=== PATIENT | female | born 1975 | race Caucasian/White ===

== ENCOUNTER 2021-11-04 09:02 | Outpatient (CLI) | payer BC | END 2021-11-04 09:03 | disposition home or self-care (01) | LOC: BICMAMMO 09:02 | PROVIDERS: ATTEND Physician Assistant | DX: Z12.31 Encounter for screening mammogram for malignant neoplasm of breast (principal) | CPT/HCPCS: 77063; 77067 ==

== ENCOUNTER 2023-08-29 16:48 | Emergency (ER) | payer OTHER, SELFPAY | END 2023-08-29 17:30 | disposition home or self-care (01) | LOC: ERS 16:48 | DX: H66.91 Otitis media, unspecified, right ear (principal); H73.91 Unspecified disorder of tympanic membrane, right ear; E11.9 Type 2 diabetes mellitus without complications; Z79.4 Long term (current) use of insulin | CPT/HCPCS: 99282 ==

== ENCOUNTER 2024-06-12 17:40 | Emergency (ER) | payer BC, OTHER ==
[2024-06-12 19:26] LABS: #Basophils 0.08 10x3/uL (0.0-0.2); %Basophils 0.8 % (0.0-1.0); %Eosinophils 1.9 % (0.0-10.0); %Lymphocytes 35.6 % (21.0-51.0); %Monocytes 5.3 % (0.0-10.0); Hematocrit 40.3 % (36.0-47.0); Hemoglobin 13.5 g/dL (12.0-16.0); Mean Corpuscular HGB CONC 33.5 g/dL (32.0-36.0); Mean Corpuscular Hemoglobin 30.5 pg (27.0-31.0); Mean Platelet Volume 11.2 fL (7.4-10.4); Platelet Count 233 10x3/uL (130-400); RBC Distribution Width 13.2 % (11.5-14.5); Red Blood Cell (RBC) Count 4.43 mill/uL (4.20-5.40)
[2024-06-12 19:33] LABS: Actual Bicarbonate (HCO3v) 30.6 mEq/L (22-28); Base Excess 3.2 mEq/L (-2.0 to +3.0); Chloride (VBG) 97 mmol/L (98-106); Hematocrit-VBG 42 % (36.0-47.0); Hemoglobin (Hb) 14.4 g/dL (11.7-16.0); Potassium (VBG) 4.18 mmol/L (3.70-5.30); Sodium 137 mmol/L (133-146); pH (venous) 7.339 (7.32-7.43)
[2024-06-12 19:39] LABS: Phosphorus 4.1 mg/dL (2.3-4.7)
[2024-06-12 19:40] LABS: ALT (SGPT) 50 U/L (8-55); AST (SGOT) 41 U/L (5-34); Albumin 3.8 g/dL (3.5-5.0); Alkaline Phosphatase 91 U/L (40-110); Anion Gap 12 mmol/L (10-20); BUN (Urea Nitrogen) 16 mg/dL (7.0-18.7); Bilirubin, Total 0.5 mg/dL (0.2-1.2); Calc. Creatinine Clearance 0 mL/min (70-130); Calcium 9.7 mg/dL (7.8-10.44); Carbon Dioxide 31 mmol/L (22-29); Chloride 99 mmol/L (98-107); Estimated GFR 83; Globulin 3.8 g/dL (2.4-3.5); Glucose 259 mg/dL (70-105); Magnesium 1.8 mg/dL (1.6-2.6); Potassium 4.2 mmol/L (3.5-5.1); Protein, Total 7.6 g/dL (6.0-8.3); Sodium 138 mmol/L (136-145)
[2024-06-12 19:57] LABS: Bacteria/HPF None Seen HPF (None Seen); Bilirubin Negative (Negative); Blood, Urine Negative (Negative); CAUTI Indications for Culture Pelvic or flank pain; Clarity Turbid (Clear); Glucose, Urine (Dipstick) 300 mg/dL (Negative); Ketone, Urine Negative (Negative); Leukocyte Negative Leu/uL (Negative); Nitrite Negative (Negative); Protein, Urine (Dipstick) Negative (Neg-Trace); RBC/HPF 0-3 HPF (0-3); Specific Gravity, Urine 1.008 (1.002-1.036); Squamous Epithelial 0-3 HPF (0-3); Urobilinogen Normal mg/dL (Less than 2); WBC/HPF 0-3 HPF (0-3); Yeast-Budding 3+ HPF (None Seen); pH, Urine 5.5 (5.0-9.0)
[2024-06-12 19:59] LABS: Urine Culture Reflex No No
== END 2024-06-12 22:16 | disposition home or self-care (01) ==
LOC: ERS 17:40
DX: E11.65 Type 2 diabetes mellitus with hyperglycemia (principal)
CPT/HCPCS: 36415; 36416; 80053; 81001; 82010; 82805; 83735; 84100; 85025; 96360; 96361